=== PATIENT | female | born 2000 | race Caucasian/White ===

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

== ENCOUNTER 2022-08-20 02:45 | Emergency (ER) | payer MEDICAID ==
[~2022-08-20] VITALS: Ht 149.9 cm; Wt 53.5 kg
[2022-08-20 02:45] VITALS: BP 101/65
[~2022-08-20 02:45] MED LIST changes: +GUAI237L61 PO; +IBUP-1842 PO
--- NOTE | 2022-08-20 02:48 | NUR ---
TO LOBBY A/W BED AMBULATORY
[2022-08-20 02:50] VITALS: BP 101/65
--- NOTE | 2022-08-20 02:55 | NUR ---
SEEN AND EXAMINED BY SHANTEL
[2022-08-20 03:28] LABS: APPEARANCE,URINE CLEAR (CLEAR); BILIRUBIN,URINE NEGATIVE (NEGATIVE); BLOOD, URINE TRACE-I (NEGATIVE); COLOR,URINE YELLOW (YELLOW); LEUKOCYTE ESTERASE ,URINE TRACE (NEGATIVE); NITRITE, URINE NEGATIVE (NEGATIVE); UGLUCOSE NEGATIVE (NEGATIVE)
[2022-08-20 03:39] LABS: RBC,URINE 0-5 /HPF (0-5)
[2022-08-20] MEDS ORDERED: PHEN-1877 PO (04:15)
[2022-08-20] MEDS ORDERED: NITR100C7 PO (04:15)
[2022-08-20] MEDS ORDERED: NITR-141 PO (04:20)
--- NOTE | 2022-08-20 04:21 | NUR ---
Patient discharged with v/s stable. Written and verbal after care instructions given and explained. Patient alert, oriented and verbalized understanding of instructions. Ambulatory with steady gait. All questions addressed prior to discharge. ID band removed. Patient advised to follow up with PMD. Rx of MACROBID AND PYRIDIUM given. Patient educated on indication of medication including possible reaction and side effects. Opportunity to ask questions provided and answered.
[2022-08-22] MEDS ORDERED: CEPH-588 PO (12:41)
--- NOTE | 2022-08-22 13:40 | NUR ---
LATE ENTRY. RECEIVED POSITIVE URINE CULTURE. FORM GIVEN TO DR MURGUIA. NEW RX OF KEFLEX SENT TO [facility]. CALLED & SPOKE WITH PATIENT DIRECTLY, ALL QUESTIONS ANSWERED. FORM PLACED IN BINDER
== END 2022-08-20 04:20 | disposition home or self-care (01) ==
LOC: MED 02:45
DX: N39.0 Urinary tract infection, site not specified (principal); Z79.899 Other long term (current) drug therapy; Z79.2 Long term (current) use of antibiotics; Z79.1 Long term (current) use of non-steroidal anti-inflammatories (NSAID)
CPT/HCPCS: 81001; 87086; 99283

== ENCOUNTER 2023-07-20 03:39 | Emergency (ER) | payer MEDICAID ==
[~2023-07-20] VITALS: Ht 149.9 cm; Wt 68.0 kg
[~2023-07-20 03:39] MED LIST changes: +CEPH-588 PO; +NITR-141 PO; +NITR100C7 PO; +PHEN-1877 PO
[2023-07-20 03:42] VITALS: BP 97/59; PULSE 94; RESP 16; TEMP 98.4; O2SAT 100
[2023-07-20 05:24] LABS: FLU A ANTIGEN negative (NEGATIVE); FLU B ANTIGEN negative (NEGATIVE)
[2023-07-20] MEDS: IBUPROFEN 600 MG TAB PO ONE (05:45)
[2023-07-20 06:02] VITALS: BP 97/59; PULSE 94; RESP 16; TEMP 98.4; O2SAT 100
== END 2023-07-20 06:02 | disposition home or self-care (01) ==
LOC: MED 03:39
DX: J02.9 Acute pharyngitis, unspecified (principal); Z20.822 Contact with and (suspected) exposure to COVID-19; Z79.899 Other long term (current) drug therapy
CPT/HCPCS: 87081; 99283